=== PATIENT | male | born 2000 | race Caucasian/White ===

== ENCOUNTER 2024-11-03 13:45 | Outpatient (RCR) | payer BC, SELFPAY | END 2024-12-21 13:37 | disposition home or self-care (01) | PROVIDERS: Visit Provider Orthopaedic Surgery Sports Medicine | DX: M92.521 Juvenile osteochondrosis of tibia tubercle, right leg (principal); M25.561 Pain in right knee; R26.89 Other abnormalities of gait and mobility; Z51.89 Encounter for other specified aftercare | CPT/HCPCS: 97110; 97116; 97140; 97161; 97162 ==